=== PATIENT | female | born 1940 | race Two or more races ===

== ENCOUNTER 2018-10-03 16:09 | Emergency (ER) | payer OTHER ==
[~2018-10-03] VITALS: Ht 152.4 cm; Wt 121.1 kg
[~2018-10-03 16:09] MED LIST: CATAFLAM50 MG; HYZAAR 100-121 UDTAB; NABUMETONE500 MG PO; SYNTHROID75 MCG; TRAMADOL HCL50 MG PO; ZOCOR5 MG
[2018-10-03] MEDS ORDERED: TOLTERODINE TART2 M1 PO (16:29)
[2018-10-03] MEDS ORDERED: GABAPENTIN100 MG PO (16:30)
[2018-10-03] MEDS ORDERED: BACLOFEN10 MG PO (16:30)
[2018-10-03] MEDS ORDERED: SIMVASTATIN20 MG PO (16:31)
[2018-10-03] MEDS ORDERED: LOSARTAN-HCTZ1 EACH PO (16:31)
== END 2018-10-03 18:44 | disposition home or self-care (01) ==
LOC: ER 16:09
DX: M54.5 Low back pain (principal)

== ENCOUNTER 2018-11-07 11:30 | Emergency (ER) | payer OTHER ==
[~2018-11-07] VITALS: Ht 152.4 cm; Wt 116.6 kg
[~2018-11-07 11:30] MED LIST changes: +BACLOFEN10 MG PO; +GABAPENTIN100 MG PO; +LOSARTAN-HCTZ1 EACH PO; +SIMVASTATIN20 MG PO; +TOLTERODINE TART2 M1 PO
[2018-11-07] MEDS ORDERED: MEDROLPACK PO (15:46)
[2018-11-07] MEDS ORDERED: KETO10TA2 PO (15:46)
[2018-11-07] MEDS ORDERED: NORFLEX100MG PO (15:46)
== END 2018-11-07 15:54 | disposition home or self-care (01) ==
LOC: ER 11:30
DX: M25.511 Pain in right shoulder (principal); M25.562 Pain in left knee; M25.561 Pain in right knee; M54.5 Low back pain; M54.2 Cervicalgia

== ENCOUNTER 2019-09-21 12:30 | Emergency (ER) | payer OTHER ==
[~2019-09-21] VITALS: Ht 147.3 cm; Wt 116.6 kg
[~2019-09-21 12:30] MED LIST changes: +KETO10TA2 PO; +MEDROLPACK PO; +NORFLEX100MG PO
[2019-09-21] MEDS ORDERED: BACTRIM DS TAB1 EACH PO (13:56)
[2019-09-21] MEDS ORDERED: KETO10TA2 PO (13:56)
== END 2019-09-21 14:16 | disposition home or self-care (01) ==
LOC: ER 12:30
DX: L03.114 Cellulitis of left upper limb (principal); L27.0 Generalized skin eruption due to drugs and medicaments taken internally; T78.49XA Other allergy, initial encounter; T50.995A Adverse effect of other drugs, medicaments and biological substances, initial encounter; Y92.89 Other specified places as the place of occurrence of the external cause

== ENCOUNTER → 2020-09-12 | Outpatient (CLI) | payer OTHER ==
[~2020-09-12] MED LIST changes: +BACTRIM DS TAB1 EACH PO
== END | disposition home or self-care (01) ==
LOC: MAMO-SONO 09-05 14:15
PROVIDERS: ATTEND Specialist
DX: Z12.31 Encounter for screening mammogram for malignant neoplasm of breast (principal)